=== PATIENT | female | born 1990 | race Caucasian/White ===

== ENCOUNTER 2018-07-20 00:33 | Inpatient (IN) | payer BC ==
[2018-07-20] MEDS ORDERED: RINGERS SOLUTION,LACTATED 1,000 ML IV PRN (01:01)
[2018-07-20 01:17] LABS: APPEARANCE,URINE TURBID; BILIRUBIN,URINE NEGATIVE (NEGATIVE); GLUCOSE, URINE 50 mg/dL (NEGATIVE); KETONES,URINE TRACE mg/dL (NEGATIVE); LEUKOCYTE ESTERASE,URINE NEGATIVE (NEGATIVE); NITRITE,URINE NEGATIVE (NEGATIVE); PROTEIN,URINE 100 mg/dL (NEGATIVE); URINE SPECIFIC GRAVITY 1.006; UROBILINOGEN,URINE NEGATIVE mg/dL (<2.0)
[2018-07-20 01:22] LABS: COLOR,URINE YELLOW
[2018-07-20 01:58] LABS: URINE AMPHETAMINES SCREEN NEGATIVE; URINE BARBITURATES SCREEN NEGATIVE; URINE BENZODIAZEPINES SCREEN NEGATIVE; URINE COCAINE SCREEN NEGATIVE; URINE MARIJUANA (THC) SCREEN NEGATIVE; URINE METHADONE SCREEN NEGATIVE; URINE PHENCYCLIDINE SCREEN NEGATIVE
[2018-07-20 02:23] LABS: ABSOLUTE EOSINOPHILS # (AUTO) 0.1 10^3/uL (0.0-0.6); ABSOLUTE LYMPHOCYTES (AUTO) 1.7 10^3/uL (0.5-4.7); ABSOLUTE MONOCYTES (AUTO) 0.8 10^3/uL (0.1-1.4); ABSOLUTE NEUT (AUTO) 9.2 10^3/uL (1.7-8.2); BASOPHILS % (AUTO) 0.2 % (0-2); EOSINOPHILS % (AUTO) 0.7 % (0-6); HEMATOCRIT 39.7 % (36.0-47.0); HEMOGLOBIN 14.2 g/dL (12.0-15.5); LYMPHOCYTES % (AUTO) 14.3 % (13-45); MEAN CORPUSCULAR HGB CONC 35.7 g/dL (32.0-36.0); MEAN CORPUSCULAR VOLUME 98 fl (80-97); MONOCYTES % (AUTO) 7.2 % (3-13); PLATELET COUNT 331 10^3/uL (150-450); RED BLOOD COUNT 4.05 10^6/uL (3.72-5.28); RED CELL DISTRIBUTION WIDTH 12.7 % (11.5-14.0); SEGMENTED NEUTROPHILS % (AUTO) 77.6 % (42-78); TOTAL CELLS COUNTED % (AUTO) 100 %; WHITE BLOOD COUNT 11.8 10^3/uL (4.0-10.5)
[2018-07-20] MEDS ORDERED: OXYTOCIN/NORMAL SALINE 20 UNIT/1,000 ML RTUINJ ONE ×2 (04:07→22:08)
[2018-07-20] MEDS: OXYTOCIN/NORMAL SALINE 20 UNIT/1,000 ML RTUINJ IV PRN (04:20)
[2018-07-20 04:48] LABS: ALANINE AMINOTRANSFERASE 44 U/L (9-52); ALBUMIN 3.4 g/dL (3.5-5.0); ALKALINE PHOSPHATASE 124 U/L (38-126); ANION GAP 12 (5-19); ASPARTATE AMINO TRANSFERASE 33 U/L (14-36); BILIRUBIN,DIRECT 0.2 mg/dL (0.0-0.4); BILIRUBIN,TOTAL 0.4 mg/dL (0.2-1.3); BLOOD UREA NITROGEN 7 mg/dL (7-20); CALCIUM 9.7 mg/dL (8.4-10.2); CARBON DIOXIDE 20 mmol/L (22-30); CHLORIDE 108 mmol/L (98-107); GLUCOSE 100 mg/dL (75-110); POTASSIUM 4.1 mmol/L (3.6-5.0); SODIUM 139.8 mmol/L (137-145); URIC ACID 4.8 mg/dL (2.5-6.2)
[2018-07-20] MEDS ORDERED: PROMETHAZINE HCL INJ 25 MG/1 ML VIAL ONE (04:57)
[2018-07-20] MEDS ORDERED: NALBUPHINE HCL INJ 10 MG/1 ML AMPULE ONE ×2 (04:58→20:18)
--- NOTE | 2018-07-20 06:45 | Admission Physical ---
Datetime Report Generated by CPN: 07/20/2018 06:44 CURRENT ADMISSION Chief Complaint: Uterine Contractions Indication for Induction: PROM Admit Impression : Term, Intrauterine Admit Plan: Admit to Unit ALLERGIES Medication Allergies: No Medication Allergies: No Known Allergies (07/20/2018) Latex: No Latex Allergies Food Allergies: denies Environmental Allergies: denies OBSTETRICAL HISTORY EDC: 07/18/2018 00:00 : 1 Para: 0 Term: 0 : 0 SAB: 0 IAB: 0 Livin Gestational Diabetes: No Rh Sensitization: No Incompetent Cervix: No NADYA: No Infertility: No ART Treatment: No Uterine Anomaly: No IUGR: No Hx Previous C/S: No Macrosomia: No Hx Loss/Stillborn: No PIH: No Hx : No Placenta Previa/Abruption: No Depression/PP Depression: No PTL/PROM: No Post Hemorrhage: No Current Procedures: Ultrasound; NST Obstetrical History Comments: g1-current SEE RECORDS Alcohol: No Marijuana : No Cocaine: No Other Illicit Drugs: No Cigarettes: Never Smoker. [id number] MEDICAL HISTORY Diabetes: No Blood Transfusion: No Pulmonary Disease (Asthma, TB): Yes Breast Disease: No Hypertension: No Analytical Statistician Surgery: No Heart Disease: No Hosp/Surgery: No Autoimmune Disorder: No Anesthetic Complications: No Kidney Disease: No Abnormal Pap Smear: No Neuro/Epilepsy: No Psychiatric Disorders: No Other Medical Diseases: No Hepatitis/Liver Disease: No Significant Family History: No Varicosities/Phlebitis: No Trauma/Violence : No Thyroid Dysfunction: No Medical History Comments: patient states she has "white coat syndrome", exercise induced asthma has inhaler but has never used, oral cold sores INFECTIOUS HISTORY Gonorrhea: No Genital Herpes: No Chlamydia: No Tuberculosis: No Syphilis: No Hepatitis: No HIV/AIDS Exposure: No Rash or Viral Illness: No HPV: No PHYSICAL EXAM General: Normal HEENT: Normal Neurologic: Normal Thyroid: Normal Heart: Normal Lungs: Normal Breast: Normal Back: Normal Abdomen: Normal Genitourinary Exam: Normal Extremities: Normal DTRs: Normal Pelvic Type: Adequate Vital Signs: Reviewed; Within Normal Limits VAGINAL EXAM Dilatation: 1 Effacement: 25 Station: -2 MEMBRANES Pooling: Positive Membranes: Ruptured Amniotic Fluid Color: Clear FETUS A EGA: 40.2 Monitoring: External US FHR- Baseline: 120 Variability: Moderate 6-25bpm Accelerations: 15X15 Decelerations: None FHR Category: Category I Estimated Weight (gm): 3500 Presentation: Vertex PLANS FOR LABOR AND DELIVERY Labor and Delivery: Plan Pain Management: Natural Other Pain Management Plans: natural but open to other management options if induced Feeding Preference: Breast Benefit of Breast Feed Discussed: Yes Circumcision: Yes INFORMED CONSENT Signature: with User ID: [email or web address]
[2018-07-20] MEDS ORDERED: EPHEDRINE SULFATE INJ 50 MG/1 ML AMPULE ONE (09:49)
[2018-07-20] MEDS ORDERED: FENTANYL/BUPIVACAINE/NS/PF 300 MCG/150 ML RTUINJ EPI ONE ×2 (09:49→22:52)
[2018-07-20] MEDS ORDERED: BUPIVACAINE HCL 0.5 % INJ/PF 30 ML SDV ONE (09:50)
[2018-07-20] MEDS ORDERED: BUPIVACAINE HCL 0.25 % INJ/PF (2.5 MG/1 ML) 30 ML VIAL ONE ×2 (09:50→22:45)
[2018-07-20] MEDS ORDERED: NALBUPHINE HCL INJ 10 MG/1 ML AMPULE INJ ONE (20:28)
[2018-07-20] MEDS ORDERED: MISOPROSTOL 0.2 MG TABLET ONE (22:07)
[2018-07-20] MEDS ORDERED: LIDOCAINE 1% INJ-PF (10 MG/ML) 30 ML SDV ONE (22:08)
[2018-07-21] MEDS: OXYTOCIN/NORMAL SALINE 20 UNIT/1,000 ML RTUINJ IV PRN (04:26)
[2018-07-21] MEDS ORDERED: CITRIC ACID/SODIUM CITRATE ORAL SOLN 15 ML UDCUP ONE (04:59)
[2018-07-21] MEDS ORDERED: CEFAZOLIN 2 GM/D5W RTU 2 GM/50 ML RTUPB IV ONE (04:59)
[2018-07-21] MEDS ORDERED: CARBOPROST TROMETHAMINE INJ 250 MCG/1 ML AMPULE ONE (04:59)
--- NOTE | 2018-07-21 05:14 | L&D Progress Notes ---
PROGRESS NOTES Datetime Report Generated by CPN: 07/21/2018 05:14 PROGRESS NOTE Impression: Arrest of Dilatation/Descent; Reassuring Heart Rate Impression Other: Maternal exhaustion Plan: Deliver- Section Informed Consent Obtained: Section Delivery Vital Signs : Reviewed Comment: Prolonged 1st stage of labor followed by minimal descent during the 2nd stage as a result of exhaustion. Pt with pushing efforts >1hr but no full effort on patient's part. Pt very uncomfortable and pushing in various positions. Second to maternal exhaustion and lack of pushing effort, recommend a 1LTCS. Discussed with pt and her risk of to be bleeding, infection, poor wound healing, possible damage to adjacent structures such as damage to the bowel, bladder, ureters, nerves or blood vessels. Knowing all of the above, patient desires to go forward with . VAGINAL EXAM Dilatation: 10 Dilatation: 1 Effacement: 100 Effacement: 25 Station: 2 Station: -2 Contractions: 3 LAST VAGINAL EXAM-NURSING Dilitation: 10.0 Dilitation: 9.5 Dilitation: 9.5 Dilitation: 9.5 Dilitation: 8.0 Dilitation: 7.0 Dilitation: 6.0 Dilitation: 5.0 Dilitation: 3.5 Dilitation: 2.0 Dilitation: 2.0 Dilitation: 1.0 Effacement: 100 Effacement: 100 Effacement: 100 Effacement: 100 Effacement: 100 Effacement: 100 Effacement: 100 Effacement: 100 Effacement: 100 Effacement: 90 Effacement: 80 Effacement: long Station: 2 Station: 2 Station: 2 Station: 2 Station: 1 Station: 1 Station: 1 Station: 0 Station: 0 Station: 0 Station: -1 Station: -2 Contractions: UTD ctx pattern. toco adjusted Contractions: off monitor for most of tracing Contractions: utd, monitor adjusted MEMBRANES Pooling: Positive Membranes: Ruptured Membranes: Ruptured Amniotic Fluid Color: Clear Amniotic Fluid Color: Clear FETUS A FHR - Baseline: 120 Monitoring: External US Variability: Moderate 6-25bpm Accelerations: 15X15 Decelerations: Variable FHR Category: Category I : 40w3d : 40.2 Estimated Weight (gm): 3400 Estimated Weight (gm): 3500 Presentation: Vertex SIGNATURE SIGNATURE: [id number] SIGNATURE: [id number] Signature: with User ID: [email or web address]
[2018-07-21] MEDS ORDERED: BUPIVACAINE HCL 0.5 % INJ/PF 30 ML SDV ONE (05:31)
[2018-07-21] MEDS ORDERED: MIDAZOLAM 2 MG/2 ML INJ ONE (05:41)
[2018-07-21] MEDS ORDERED: KETAMINE HCL INJ 500 MG/10 ML VIAL ONE (05:41)
[2018-07-21] MEDS ORDERED: EPHEDRINE SULFATE INJ 50 MG/1 ML AMPULE ONE (05:41)
[2018-07-21] MEDS ORDERED: OXYTOCIN 10 UNIT/ML VIAL ONE (05:42)
[2018-07-21] MEDS ORDERED: FENTANYL CITRATE INJ/PF 100 MCG/2 ML AMPUL ONE (05:42)
[2018-07-21] MEDS ORDERED: MEPERIDINE HCL/PF INJ 25 MG/1 ML DISP.SYRIN IV PRN (06:11)
[2018-07-21] MEDS ORDERED: PROMETHAZINE HCL INJ 25 MG/1 ML VIAL IV PRN ×3 (06:11→07:30)
[2018-07-21] MEDS ORDERED: DIPHENHYDRAMINE HCL 50 MG/ML VIAL IV PRN (06:11)
[2018-07-21] MEDS ORDERED: FENTANYL CITRATE INJ/PF 100 MCG/2 ML AMPUL IV PRN ×3 (06:11)
[2018-07-21] MEDS ORDERED: MORPHINE SULFATE 10 MG/ML INJ IV PRN (06:11)
[2018-07-21] MEDS ORDERED: ONDANSETRON HCL INJ/PF 4 MG/2 ML SDV IV PRN (06:11)
[2018-07-21] MEDS ORDERED: ACETAMINOPHEN 1,000 MG/100 ML RTUPB IV ONE (07:05)
[2018-07-21] MEDS ORDERED: HYDROMORPHONE HCL INJ/PF 2 MG/ML AMPULE IV PRN (07:30)
[2018-07-21] MEDS ORDERED: OXYTOCIN/NORMAL SALINE 20 UNIT/1,000 ML RTUINJ IV PRN (07:30)
[2018-07-21] MEDS ORDERED: OXYCODONE-ACETAMINOPHEN 5-325 MG TABLET PO PRN (07:30)
[2018-07-21] MEDS ORDERED: DIPH/PERTUSS(ACELL)/TETANUS VAC/PF 0.5 ML SYR (>=10YO) IM PRN (07:30)
[2018-07-21] MEDS ORDERED: MEASLES,MUMPS&RUBELLA VACC/PF 0.5 ML VIAL SUBCUT PRN (07:30)
[2018-07-21] MEDS ORDERED: ACETAMINOPHEN 325 MG TABLET PO PRN (07:30)
[2018-07-21] MEDS ORDERED: MORPHINE SULFATE 10 MG/ML INJ IM PRN (07:30)
[2018-07-21] MEDS ORDERED: RINGERS SOLUTION,LACTATED 1,000 ML IV PRN (07:30)
[2018-07-21] MEDS ORDERED: KETOROLAC TROMETHAMINE INJ/PF 30 MG/1 ML SDV IV ONE (07:45)
--- NOTE | 2018-07-21 08:07 | Operative Report ---
Operative Report DATE OF SURGERY: 07/21/18 PREOPERATIVE DIAGNOSIS: IUP @ 40w3d. GBS neg. Prolonged Rupture of membranes. Failure to descend second to lack of effort. Maternal exhaustion POSTOPERATIVE DIAGNOSIS: Same OPERATION: Primary low transverse section SURGEON: YASEMIN ECKERT 1ST BERRY PLANTER: BRENTON HENRIQUEZ 2ND Carbon Paper Coating Supervisor: KAM BIANCHI ANESTHESIA: Epidural COMPLICATIONS: None ESTIMATED BLOOD LOSS: 750ml INTRAOPERATIVE FINDINGS: VMI in vtx presentation with APGARS of 9&9 and weight of 2670g. Normal placenta. Normal, ovary, tubes and uterus. PROCEDURE: Prior to procedure it was discussed with patient the risk of procedure to be bleeding, infection, wound healing, possible damage to adjacent structures such as bowel, bladder, ureters, nerves, vessels etc. Risk of thromboembolic disease, blood transfusion and hysterectomy. Patient was taken to the operating room with livingston in, GARCÍA hose on and SCDs on. Patient was transferred to the OR table. Lower extremity compression devices were placed and active. Livingston was still present from labor. Patients was placed in a leftward tilt. Patient's was prepped and draped in the normal sterile fashion. A timeout was performed. The patient was tested for adequate anesthesia. A scalpel was used to perform a pfannienstiel incision approximately 2cm above the pubic bone. After skin incision, the bovie was used to disect down to the fascia. The fascia was incised with the bovie. The superior portion of the fascia was grasped with dinah clamps. The rectus muscle was dissected off the fascia. Attention was turned to the inferior portion of the fascia which in the same fashion the dinah clamps were used to elevate the fascia and the rectus muscle was dissected off. The rectus muscles were in the midline. The peritoneum was entered. The bladder blade was inserted. The vesicouterine peritoneum was elevated and entered sharply with the metzenbaum scissors. The bladder flap was created digitally. A fresh scalpel bladder was used to incise the lower uterine segment in a transverse fashion. After hysterotomy, the incision was widened in a superior/inferior fashion. The operators hand was placed in the lower segment and the head elevated, a Kiwi was placed and the was delivered. The head was brought through the hysterotomy incision along with the body. There was a spontaneous cry. The cord was clamped and cut and infant was passed off. Cord blood was collected. The placenta was manually removed. The uterus was cleared of all clots and debris. The uterus was removed from the abdomen. The uterine incision was closed with 0 vicryl suture in running locking fashion. A second layer of the same suture was used for the imbricating layer. A non-hemostatic area of the incision was brought to hemostasis with a figure of eight suture. The uterus was replaced in the abdomen. The peritoneum and muscles were reapproximated with 0 vicryl suture in a running mattress suture. The fascia was closed with 0 vicryl suture. The adipose was reapproximated with interrupted 3-0 plain gut suture. The skin was closed with 4-0 monocryl on a delmer needle. Mastisol and sterri strips were placed along with a pressure dressing. The patients uterus was expressed of blood and clots. The patient was cleansed and moved from the OR bed. The patient was taken to the PACU in awake and stable condition.
[2018-07-21] MEDS: PRENATAL VITAMIN W DHA CAPSULE PO SCH (09:51)
[2018-07-21] MEDS: DOCUSATE SODIUM 100 MG CAPSULE PO SCH ×2 (09:51→17:25)
[2018-07-21] MEDS ORDERED: MISOPROSTOL 0.2 MG TABLET ONE (10:03)
[2018-07-21] MEDS ORDERED: KETOROLAC TROMETHAMINE 60 MG/2 ML SDV ONE (10:46)
[2018-07-21] MEDS ORDERED: ONDANSETRON HCL INJ/PF 4 MG/2 ML SDV ONE (10:46)
[2018-07-21] MEDS ORDERED: DEXAMETHASONE SOD PHOSPHATE INJ 4 MG/1 ML VIAL ONE (10:46)
[2018-07-21] MEDS ORDERED: METOCLOPRAMIDE HCL INJ/PF 10 MG/2 ML SDV ONE (10:46)
--- NOTE | 2018-07-21 10:53 | Delivery Summary ---
Del Sum A-C Datetime Report Generated by CPN: 07/21/2018 10:52 DELIVERY PERSONNEL DELIVERY PERSONNEL: [id number] Delivery Doctor:: Zoraida Kim MD Anesthesiologist:: Hank De Leon MD POLITICAL REPORTER:: Bharati Isaacs CRNA Labor and Delivery Nurse:: Pia Heller RN Atg Java Developer:: Pia Heller RN Wait Staff/BUTCHER: ST Manasa Wait Staff/BUTCHER: Leslie Faith, ST MATERNAL INFORMATION Delivery Anesthesia: Epidural Medications After Delivery: Pitocin Drip 20 Units/1000ml NSS Estimated Blood Loss (ml): 750 Maternal Complications: None; Prolonged Labor > 20 Hrs Provider Comments: section was uncomplicated. LABOR SUMMARY EDC: 07/18/2018 00:00 No. Babies in Womb: 1 Attempted: No Labor Anesthesia: Epidural LABOR INFORMATION Reason for Induction: Not Applicable Onset of Labor: 07/20/2018 15:20 Complete Dilatation: 07/21/2018 02:58 Oxytocin: Augmentation Group B Beta Strep: negative Antibiotics # of Doses: 0 Antibiotics Time of Last Dose: n/a Steroids Given: None Reason Steroids Not Administered: Not Applicable MEMBRANES Membranes Rupture Method: Spontaneous Rupture of Membranes: 07/19/2018 23:45 Length of Rupture (hr): 30.37 Amniotic Fluid Color: Clear Amniotic Fluid Amount: Moderate Amniotic Fluid Odor: Normal STAGES OF LABOR Stage 1 hr: 11 Stage 1 min: 38 Stage 2 hr: 3 Stage 2 min: 9 Stage 3 hr: 0 Stage 3 min: 1 Total Time in Labor hr: 14 Total Time in Labor min: 48 VAGINAL DELIVERY Episiotomy: None Laceration Extension #1: N/A Laceration Repair: Not Applicable Sponge Count Correct: N/A Sharps Count Correct: N/A CSECTION DELIVERY Primary Indication: Failure of Descent Secondary Indication: Other Other Secondary Indication: Lack of maternal effort CSection Urgency: Non-Scheduled CSection Incidence: Primary Labor: Labor Elective: Nonelective CSection Incision: Lower Uterine Transverse BABY A INFORMATION Delivery Date/Time: 07/21/2018 06:07 Method of Delivery: Born in Route : No : N/A Forceps: N/A Vacuum Extraction: Successful Shoulder Dystocia : No ASSISTED DELIVERY BABY A Catheter Prior to Procedure: Yes Vacuum Number of Pulls: 1 Vacuum Number of PopOffs: 1 Vacuum/Forceps Comment: kiwi applied at 0606 during C section with one pop off and one pull. PRESENTATION/POSITION BABY A Presentation: Cephalic Cephalic Presentation: Vertex Breech Presentation: N/A PLACENTA INFORMATION BABY A Placenta Delivery Time : 07/21/2018 06:08 Placenta Method of Delivery: Spontaneous Placenta Status: Delivered SCORES BABY A Heart Rate 1 min: >100 bpm Resp Effort 1 min: Good Cry Reflex Irritability 1 min: Cough or Sneeze or Pulls Away Muscle Tone 1 min: Active Motion Color 1 min: Body [place], Extremities Blue Resuscitation Effort 1 min: Tactile Stimulation SCORE 1 MIN: 9 Heart Rate 5 min: >100 bpm Resp Effort 5 min: Good Cry Reflex Irritability 5 min: Cough or Sneeze or Pulls Away Muscle Tone 5 min: Active Motion Color 5 min: Body [place], Extremities Blue SCORE 5 MIN: 9 INFORMATION BABY A Gestational Age at Delivery: 40.3 Gestational Status: Full Term- 39- 40.6 Weeks Infant Outcome : Liveborn Infant Condition : Stable Sex: Male IDENTIFICATION BABY A Verification Date/Time: 07/21/2018 06:27 ID Band Number: [id number] Mother's Name Verified: Yes Infant RN Verifying Infant: CAnn Heller, RN Mini Denise, RN WEIGHT/LENGTH BABY A Infant Birthweight (gm): 2670 Infant Weight (lb): 5 Infant Weight (oz): 14 Length (in): 19.50 Length (cm): 49.53 CORD INFORMATION BABY A No. Cord Vessels: 3 Nuchal Cord : N/A Cord Blood Taken: Yes-For Storage (Mom's Blood type +) Suction: Mouth ASSESSMENT BABY A Infant Complications: None Physical Findings at Delivery: Caput Succedaneum Transferred To: Remains with Mother BABY B INFORMATION : N/A SIGNATURES Signature: with User ID: [email or web address]
[2018-07-21] MEDS ORDERED: CEFAZOLIN 1 GM/D5W RTU 1 GM/50 ML RTUPB IV SCH (12:00)
[2018-07-21] MEDS: KETOROLAC TROMETHAMINE INJ/PF 30 MG/1 ML SDV IV SCH ×2 (14:19→21:26)
[2018-07-21] MEDS: OXYCODONE-ACETAMINOPHEN 5-325 MG TABLET PO PRN (19:50)
[2018-07-21] MEDS: SIMETHICONE 80 MG TAB.CHEW PO PRN (20:09)
[2018-07-22] MEDS: KETOROLAC TROMETHAMINE INJ/PF 30 MG/1 ML SDV IV SCH (05:05)
[2018-07-22 08:40] LABS: HEMATOCRIT 24.4 % (36.0-47.0); MEAN CORPUSCULAR HEMOGLOBIN 34.8 pg (27.0-33.4); MEAN CORPUSCULAR HGB CONC 34.9 g/dL (32.0-36.0); MEAN CORPUSCULAR VOLUME 100 fl (80-97); PLATELET COUNT 277 10^3/uL (150-450); RED BLOOD COUNT 2.45 10^6/uL (3.72-5.28); RED CELL DISTRIBUTION WIDTH 12.9 % (11.5-14.0); WHITE BLOOD COUNT 18.5 10^3/uL (4.0-10.5)
[2018-07-22 08:50] LABS: HEMOGLOBIN 8.5 g/dL (12.0-15.5)
[2018-07-22] MEDS: OXYCODONE-ACETAMINOPHEN 5-325 MG TABLET PO PRN ×3 (08:51→21:58)
[2018-07-22] MEDS: DOCUSATE SODIUM 100 MG CAPSULE PO SCH ×2 (10:19→17:17)
[2018-07-22] MEDS: PRENATAL VITAMIN W DHA CAPSULE PO SCH (10:19)
--- NOTE | 2018-07-22 10:49 | PDOC PROGRESS REPORT ---
Subjective-OB Progress Note for:: 07/22/18 Subjective: Doing well, feels tired today but pain under control, eating well, passing gas Physical Exam (OB) Vital Signs: Temp Pulse Resp BP Pulse Ox 99.3 F 87 20 126/75 H 98 07/22/18 08:00 07/22/18 08:00 07/22/18 08:00 07/22/18 08:00 07/22/18 08:00 Intake & Output 07/21/18 07/22/18 07/23/18 06:59 06:59 06:59 Intake Total 145 2600 Output Total 1700 Balance 145 900 - PIH/Pre-Eclampsia Clonus: Negative Headache: Absent Epigastric Pain: No Visual Changes: No - Dressing Removed: No Incision: Well Approximated Closure Type: Steri-Strips - Lochia Lochia Amount: Small 10-25 ml Lochia Color: Rubra/Red - Abdomen Description: Tender, Soft Hernia Present: No Fundal Description: Firm, Midline Fundal Height: u/u - u/2 Objective-Diagnostic Laboratory: 07/22/18 07:36 07/20/18 04:18 07/22/18 07:36 WBC 18.5 H RBC 2.45 L Hgb 8.5 L D Hct 24.4 L MCV 100 H MCH 34.8 H MCHC 34.9 RDW 12.9 Plt Count 277 Assessment and Plan(PN) - Assessment and Plan (1) hemorrhage Qualifiers: hemorrhage type: unspecified Qualified Code(s): O72.1 - Other immediate hemorrhage Is this a current diagnosis for this admission?: Yes (2) Delivery by emergency caesarean section Is this a current diagnosis for this admission?: Yes - Time Spent with Patient Time with patient: Less than 15 minutes Medications reviewed and adjusted accordingly: Yes - Disposition Anticipated Discharge: Home Within: within 48 hours
[2018-07-22] MEDS: SIMETHICONE 80 MG TAB.CHEW PO PRN (21:57)
[2018-07-23] MEDS: IBUPROFEN 800 MG TABLET PO SCH ×5 (00:05→23:05)
[2018-07-23] MEDS: PRENATAL VITAMIN W DHA CAPSULE PO SCH (09:05)
[2018-07-23] MEDS: DOCUSATE SODIUM 100 MG CAPSULE PO SCH ×2 (09:05→17:56)
[2018-07-23 11:20] LABS: HEMATOCRIT 24.2 % (36.0-47.0); HEMOGLOBIN 8.5 g/dL (12.0-15.5); MEAN CORPUSCULAR VOLUME 100 fl (80-97); PLATELET COUNT 306 10^3/uL (150-450); RED BLOOD COUNT 2.41 10^6/uL (3.72-5.28); WHITE BLOOD COUNT 14.8 10^3/uL (4.0-10.5)
--- NOTE | 2018-07-23 12:12 | PDOC PROGRESS REPORT ---
Subjective-OB Progress Note for:: 07/23/18 Subjective: 28yo s/p primary ppd2. Pt. reports pain is better controlled with pain meds today, was trying not to take the percocets but her pain was pretty intense yesterday. Reports ambulating and voiding without difficulty. and pumping with some difficulty. Baby under bili lights. Desires to stay in patient one more day if possible. Denies SOB/dizziness/ lightheadedness or other concerns. Physical Exam (OB) Vital Signs: Temp Pulse Resp BP Pulse Ox 98.5 F 87 16 130/76 H 100 07/23/18 08:59 07/23/18 08:59 07/23/18 08:59 07/23/18 08:59 07/23/18 08:59 Intake & Output 07/22/18 07/23/18 07/24/18 06:59 06:59 06:59 Intake Total 2600 1000 Output Total 1700 400 Balance 900 600 - General General Appearance: Appears well, Anxious - PIH/Pre-Eclampsia DTR's: 1 + Clonus: Negative Headache: Absent Epigastric Pain: No Visual Changes: No - Dressing Removed: No - s/sx of infection noted Incision: Well Approximated Closure Type: Steri-Strips - Lochia Lochia Amount: Small 10-25 ml Lochia Color: Rubra/Red - Abdomen Description: Tender, Soft Hernia Present: No Fundal Description: Firm, Midline Fundal Height: u/u - u/2 - Respiratory Respiratory Status: No respiratory distress - Extremities Upper extremity: Normal inspection Lower extremities: Normal inspection - Neurological Cognition: Normal Orientation: AAOx4 - Psychological Associated symptoms: Normal affect, Normal mood Objective-Diagnostic Laboratory: 07/23/18 11:11 07/20/18 04:18 07/23/18 11:11 WBC 14.8 H RBC 2.41 L Hgb 8.5 L Hct 24.2 L MCV 100 H MCH 35.0 H MCHC 35.0 RDW 13.0 Plt Count 306 Assessment and Plan(PN) - Assessment and Plan (1) PROM (premature rupture of membranes) Qualifiers: PROM onset of labor timing: unspecified duration between rupture of membranes and onset of labor PROM gestational age: full term Qualified Code( s): O42.92 - Full-term premature rupture of membranes, unspecified as to length of time between rupture and onset of labor Is this a current diagnosis for this admission?: Yes Plan: delivered (2) hemorrhage Qualifiers: hemorrhage type: unspecified Qualified Code(s): O72.1 - Other immediate hemorrhage Is this a current diagnosis for this admission?: Yes Plan: continue to monitor for s/s of decompensation. CBC stable today (3) Delivery by emergency caesarean section Is this a current diagnosis for this admission?: Yes Plan: routine pp care, monitor for s/s of infection - Time Spent with Patient Time with patient: 15-25 minutes Medications reviewed and adjusted accordingly: Yes - Disposition Anticipated Discharge: Home Within: within 24 hours
[2018-07-23] MEDS: OXYCODONE-ACETAMINOPHEN 5-325 MG TABLET PO PRN ×2 (13:34→19:33)
[2018-07-24] MEDS: OXYCODONE-ACETAMINOPHEN 5-325 MG TABLET PO PRN ×2 (00:52→10:47)
[2018-07-24] MEDS: IBUPROFEN 800 MG TABLET PO SCH ×2 (05:19→11:52)
[2018-07-24] MEDS: DOCUSATE SODIUM 100 MG CAPSULE PO SCH (09:10)
[2018-07-24] MEDS: PRENATAL VITAMIN W DHA CAPSULE PO SCH (09:10)
--- NOTE | 2018-07-24 10:19 | PDOC DISCHARGE SUMMARY ---
Final Diagnosis Discharge Date: 07/24/18 - POD #3, s/p Primary for CPD and subsequent PPH. Pt doing well today, no complaints. A+ Rubella Immune - Final Diagnosis (1) Anemia, Is this a current diagnosis for this admission?: Yes (2) Delivery by emergency caesarean section Is this a current diagnosis for this admission?: Yes (3) PROM (premature rupture of membranes) Is this a current diagnosis for this admission?: Yes Discharge Data - Discharge Medication Prescriptions: Docusate Sodium [Colace 100 mg Capsule] 100 mg PO BID #60 capsule Ferrous Sulfate [Feosol 325 mg Tablet] 325 mg PO TID #90 tab Ibuprofen [Motrin 800 mg Tablet] 800 mg PO Q8HP PRN #60 tablet PRN Reason: Abdominal Cramping Oxycodone HCl/Acetaminophen [Percocet 5-325 mg Tablet] 2 tab PO Q4HP PRN #20 tablet PRN Reason: For Pain Scale 3-5 Home Medications: Cholecalciferol (Vitamin D3) [Vitamin D3 5000 unit Capsule] 1 tab PO DAILY 07/20 Krill Oil 1 tab PO DAILY 07/20/18 Pnv No.95/Ferrous Fum/Folic AC [ Vitamin Tablet] 1 tab PO DAILY Docusate Sodium [Colace 100 mg Capsule] 100 mg PO BID #60 capsule 07/23/18 Ferrous Sulfate [Feosol 325 mg Tablet] 325 mg PO TID #90 tab 07/23/18 Ibuprofen [Motrin 800 mg Tablet] 800 mg PO Q8HP PRN #60 tablet 07/23/18 Oxycodone HCl/Acetaminophen [Percocet 5-325 mg Tablet] 2 tab PO Q4HP PRN #20 tablet 07/23/18 Reason(s) for Admission: Induction of Labor Procedures: Ultrasound Intrapartum Procedure(s): : Low Cervical, Transverse Complication(s): Hemorrhage-Uterine Atony - Diagnosis Test Laboratory: Temp Pulse Resp BP Pulse Ox 98.4 F 86 20 133/75 H 98 07/24/18 08:35 07/24/18 08:35 07/24/18 08:35 07/24/18 08:35 07/24/18 08:35 07/20/18 07/20/18 07/22/18 00:52 01:55 07:36 RBC 4.05 2.45 L Hgb 14.2 8.5 L D Hct 39.7 24.4 L Urine Opiates Screen NEGATIVE 07/23/18 11:11 RBC 2.41 L Hgb 8.5 L Hct 24.2 L Urine Opiates Screen - Discharge information/Instructions Discharge Activity: Activity As Tolerated, Balance Activity w/Rest, No Driving, No Lifting Over 10 Pounds, No Lifting/Push/Pulling, Pelvic Rest, No tub bath, Walk Frequently Discharge Diet: As Tolerated, Regular Disposition: HOME, SELF-CARE Follow up with: [facility] in: 1, Weeks
[2018-07-24 12:18] VITALS: BP 148/80
== END 2018-07-24 14:35 | disposition home or self-care (01) | DRG 787 ==
LOC: LC 00:33 → LR 01:05 → 2S 07-21 09:10
PROVIDERS: ADMIT Obstetrics & Gynecology; ATTEND Obstetrics & Gynecology
PROC: 4A1HXCZ Monitoring of Products of Conception, Cardiac Rate, External Approach (ICD-10-PCS; 2018-07-20)
PROC: 10D00Z1 Extraction of Products of Conception, Low, Open Approach (ICD-10-PCS; principal; 2018-07-21)
PROC: 3E0234Z Introduction of Serum, Toxoid and Vaccine into Muscle, Percutaneous Approach (ICD-10-PCS; 2018-07-24)
DX: O63.0 Prolonged first stage (of labor) (principal); O72.1 Other immediate postpartum hemorrhage; O75.81 Maternal exhaustion complicating labor and delivery; O42.02 Full-term premature rupture of membranes, onset of labor within 24 hours of rupture; O90.81 Anemia of the puerperium; D64.9 Anemia, unspecified; Z23 Encounter for immunization; Z28.21 Immunization not carried out because of patient refusal; Z3A.40 40 weeks gestation of pregnancy; Z37.0 Single live birth
CPT/HCPCS: 1961; 36415; 80053; 80307; 81005; 83615; 84112; 84550; 85025; 85027; 86592; 86850; 86900; 86901; 90715; 94760; 94799; J0131; J0690; J1100; J1170; J1885; J2250; J2300; J2405; J2550; J2590; J2765; J3010; J3490; J7120

== ENCOUNTER 2018-07-25 10:21 | Emergency (ER) | payer BC ==
--- NOTE | 2018-07-25 10:35 | ER Document Report ---
ED Medical Screen (RME) - General Mode of Arrival: Ambulatory Information source: Patient TRAVEL OUTSIDE OF THE [place] IN LAST 30 DAYS: No - General Chief Complaint: Blood Pressure Problem Stated Complaint: BLOOD PRESSURE ISSUE Time Seen by Provider: 07/25/18 10:33 Notes: 28 years old female , discharged from the hospital after on the second of this month. Presents today with an episode of dizziness lightheadedness and elevated blood pressure. She had white coat syndrome. Each time she goes to the doctors for a long time always have elevated blood pressure. But at home monitoring pressure remains around 110-120. Systole. Today at the baby's doctor's appointment, baby's blood was drawn, the mother was watching it and almost passed out. Had a vasovagal episode. Following that her blood pressure was elevated around 170 systole therefore she was referred to the ED. She also states that she had lost a lot of blood during his . And transfused with blood. Currently feeling comfortable. (MONROE NAJERA) - Related Data Allergies/Adverse Reactions: No Known Allergies Allergy (Verified 07/25/18 10:23) - Vital signs Vitals: Temp Pulse Resp BP Pulse Ox 98.8 F 94 18 170/86 H 100 07/25/18 10:23 07/25/18 10:23 07/25/18 10:23 07/25/18 10:23 07/25/18 10:23 - Vital Signs Vital signs: Temp Pulse Resp BP Pulse Ox 98.8 F 94 18 170/86 H 100 07/25/18 10:23 07/25/18 10:23 07/25/18 10:23 07/25/18 10:23 07/25/18 10:23 - Laboratory Laboratory results interpreted by me: 07/25/18 10:43 Urine Blood LARGE H Doctor's Discharge - Discharge Referrals: ROBYN ESPARZA MD [Primary Care Provider] - Follow up as needed
[2018-07-25 10:56] LABS: APPEARANCE,URINE CLEAR; BILIRUBIN,URINE NEGATIVE (NEGATIVE); COLOR,URINE COLORLESS; GLUCOSE, URINE NEGATIVE (NEGATIVE); KETONES,URINE NEGATIVE (NEGATIVE); LEUKOCYTE ESTERASE,URINE NEGATIVE (NEGATIVE); NITRITE,URINE NEGATIVE (NEGATIVE); PROTEIN,URINE NEGATIVE (NEGATIVE); URINE SPECIFIC GRAVITY 1.003; UROBILINOGEN,URINE NEGATIVE mg/dL (<2.0)
--- NOTE | 2018-07-25 11:24 | ER Document Report ---
ED General - General Chief Complaint: Blood Pressure Problem Stated Complaint: BLOOD PRESSURE ISSUE Time Seen by Provider: 07/25/18 10:33 Mode of Arrival: Ambulatory TRAVEL OUTSIDE OF THE [place] IN LAST 30 DAYS: No - HPI Notes: 28-year-old female 1 para 1 presents to the ED for complaints of feeling dizzy when she was getting her son's blood work checked today, states the blood pressure is elevated today, she was sent to the ED for evaluation. Patient has discharge from [facility] or yesterday after having a . Patient states she has not been sleeping since giving since she is breast-feeding every hour, changing diapers and reports that there is "multiple people in the room every 30 minutes" while she was on the OBGYN floor. Patient denies having gestational diabetes or preeclampsia during her other complications in her . States incision site is healing well. Patient states that she does get white coat syndrome. Denies any history of hypertension or syncopal event. She did receive a blood transfusion when she did have her , states she is laboring for 30 hours and then needed an emergent due to failure progression. Was delivered, did not require NICU. States she is having some vaginal bleeding but nothing than usual. Is not complaining any vaginal pelvic pain. Denies any diarrhea, nausea or vomiting. Denies fevers, chills, chest pain,palpitations, shortness of breath , dyspnea, nausea, vomiting, diarrhea, abdominal pain, hematuria,blurred vision , double vision, loss of vision, speech changes, LH, dizziness, syncope, headaches, wheezing, ST, URI, neck pain, weakness, bowel or bladder dysfunction , saddle anesthesia, numbness or tingling in bilateral upper or lower extremities equally, muscle paralysis, weakness in bilateral upper or lower extremities equally or rash. - Related Data Allergies/Adverse Reactions: No Known Allergies Allergy (Verified 07/25/18 10:23) Past Medical History - General Information source: Patient - Social History Smoking Status: Never Smoker Chew tobacco use (# tins/day): No Frequency of alcohol use: None Drug Abuse: None Family History: Reviewed & Not Pertinent Patient has suicidal ideation: No Patient has homicidal ideation: No Renal/ Medical History: Denies: Hx Peritoneal Dialysis Past Surgical History: Reports: Hx Section Review of Systems - Review of Systems Constitutional: See HPI EENT: No symptoms reported Cardiovascular: No symptoms reported Respiratory: No symptoms reported Gastrointestinal: No symptoms reported Genitourinary: No symptoms reported Female Genitourinary: No symptoms reported Musculoskeletal: No symptoms reported Skin: No symptoms reported Hematologic/Lymphatic: No symptoms reported Neurological/Psychological: No symptoms reported Physical Exam - Vital signs Vitals: Temp Pulse Resp BP Pulse Ox 98.8 F 94 18 170/86 H 100 07/25/18 10:23 07/25/18 10:23 07/25/18 10:23 07/25/18 10:23 07/25/18 10:23 - Notes Notes: PHYSICAL EXAMINATION: GENERAL: Well-appearing, well-nourished and in no acute distress. HEAD: Atraumatic, normocephalic. EYES: Pupils equal round and reactive to light, extraocular movements intact, conjunctiva are normal. ENT: Nares patent, oropharynx clear without exudates. Moist mucous membranes. NECK: Normal range of motion, supple without lymphadenopathy LUNGS: Breath sounds clear to auscultation bilaterally and equal. No wheezes rales or rhonchi. HEART: Regular rate and rhythm without murmurs ABDOMEN: Soft, nontender, nondistended abdomen. No guarding, no rebound. No masses appreciated. Female : deferred Musculoskeletal: Normal range of motion, no pitting or edema. No cyanosis. NEUROLOGICAL: Cranial nerves grossly intact. Normal speech, normal gait. Normal sensory, motor exams. PERRLA, EOMI. Full motor and sensory function throughout. [employer] + 2 equal bilaterally in BUE. Tongue midline. No pronator drift. No ataxia. Neck with APROM. Raises eyebrows. Strength is 5 out of 5 in bilateral upper and lower extremities equally.Speaks in full sentences. No weakness on one side. PSYCH: Normal mood, normal affect. SKIN: Warm, Dry, normal turgor, no rashes or lesions noted. Site healing well, no erythema, induration, swelling or warmth to touch Course - Re-evaluation Re-evalutation: 07/25/18 12:51 Afebrile, no distress, vitals was blood pressure slightly elevated presents for evaluation since her blood pressure is elevation oily she was getting her child blood work done today. Patient was recently discharged from the [facility] yesterday after having on July 21, 2018, patient states that she did have a transfusion due to blood loss while she was having her on the second. Patient denies any change in level consciousness or neuro changes on her blood pressure was elevated. Patient has not been sleeping since of her child due to breast-feeding and changing. is supportive. H&H today was elevated 9.2 and hematocrit 26, previous H&H on 23 July showed a hematocrit of 24.2 and hemoglobin of 8.5. Orthostatics were normal. Patient given 500 mL's of normal saline IV. CMP shows no renal or hepatic deficiency, no electrolyte disturbances. normal magnesium and phosphorus. EKG is negative for non-STEMI. Consulted with Dr. Roy,ER attending any patient's case at 1245 guarding pertinent laboratory diagnostic minimal hernias, does not feel that transfusion is necessary due to trending H&H. Patient did feel better after normal saline. Follow-up with [facility] tomorrow, reassurance given and advised to rest to major surgery difficult labor and delivery. is very hands- on and supportive. I have reevaluated this patient multiple times and no significant life threatening changes, no signs of toxicity, sepsis or peritonitis are noted. The patient and I have discussed the diagnosis and risks , and we agree with discharging home and close follow-up. We also discussed returning to the Emergency Department immediately if new or worsening symptoms occur with the understanding that symptoms and presentations can change. At this time will discharge with return precautions and follow-up recommendations. Verbal discharge instructions given a the bedside and opportunity for questions given. We have discussed the symptoms which are most concerning (e.g., , chest pain, shortness of breath, pain level consciousness, confusion, abdominal pain, blurred vision, double vision, loss of vision, numbness or tingling, extremities, etc.) that necessitate immediate return. Medication warnings reviewed. All questions and concerns answered by this provider. Patient is in agreement with this plan and has verbalized understanding of return precautions and the need for primary care follow-up in the next 24-72 hours. Patient verbalized understanding of plan of care and agree with plan of care. - Vital Signs Vital signs: Temp Pulse Resp BP Pulse Ox 98.2 F 90 20 129/82 H 98 07/25/18 14:00 07/25/18 12:49 07/25/18 14:00 07/25/18 13:48 07/25/18 14:00 - Laboratory Result Diagrams: 07/25/18 11:17 07/25/18 11:17 Laboratory results interpreted by me: 07/25/18 07/25/18 07/25/18 10:43 11:17 11:17 WBC 11.5 H RBC 2.59 L Hgb 9.2 L Hct 26.0 L MCV 100 H MCH 35.6 H Seg Neuts % (Manual) 79 H Abs Neuts (Manual) 9.1 H Carbon Dioxide 21 L BUN 6 L Creatinine 0.45 L Glucose 127 H Total Protein 5.7 L Albumin 3.1 L Urine Blood LARGE H Discharge - Discharge Clinical Impression: Anemia, , Orthostatic lightheadedness Condition: Stable Disposition: HOME, SELF-CARE Instructions: Anemia ([facility]), Dizziness ([facility]), High Blood Pressure ([facility]) Additional Instructions: Return immediately for any new or worsening symptoms. Follow up with primary care provider, call tomorrow to make followup appointment. Follow-up with your [facility] tomorrow morning. Return to the ED for experience any fever, dizziness, lightheadedness, nausea vomiting, numbness or tingling to bilateral upper or lower extremities, rashes, confusion, immediately come to the ER or call 911 Referrals: ROBYN ESPARZA MD [ACTIVE STAFF] - Follow up tomorrow
[2018-07-25 11:35] LABS: HEMOGLOBIN 9.2 g/dL (12.0-15.5); MEAN CORPUSCULAR HEMOGLOBIN 35.6 pg (27.0-33.4); MEAN CORPUSCULAR HGB CONC 35.6 g/dL (32.0-36.0); MEAN CORPUSCULAR VOLUME 100 fl (80-97); PLATELET COUNT 435 10^3/uL (150-450); RED BLOOD COUNT 2.59 10^6/uL (3.72-5.28); RED CELL DISTRIBUTION WIDTH 12.9 % (11.5-14.0); WHITE BLOOD COUNT 11.5 10^3/uL (4.0-10.5)
[2018-07-25 11:57] LABS: ALANINE AMINOTRANSFERASE 31 U/L (9-52); ALBUMIN 3.1 g/dL (3.5-5.0); ALKALINE PHOSPHATASE 87 U/L (38-126); ANION GAP 13 (5-19); ASPARTATE AMINO TRANSFERASE 28 U/L (14-36); BILIRUBIN,DIRECT 0.2 mg/dL (0.0-0.4); BILIRUBIN,TOTAL 0.2 mg/dL (0.2-1.3); BLOOD UREA NITROGEN 6 mg/dL (7-20); CALCIUM 9.1 mg/dL (8.4-10.2); CARBON DIOXIDE 21 mmol/L (22-30); CHLORIDE 107 mmol/L (98-107); GLUCOSE 127 mg/dL (75-110); PHOSPHORUS 4.2 mg/dL (2.5-4.5); POTASSIUM 4.2 mmol/L (3.6-5.0); SODIUM 141.3 mmol/L (137-145); TOTAL PROTEIN 5.7 g/dL (6.3-8.2)
[2018-07-25 12:11] LABS: ABSOLUTE LYMPHOCYTES# (MANUAL) 1.5 10^3/uL (0.5-4.7); ABSOLUTE MONOCYTES # (MANUAL) 0.3 10^3/uL (0.1-1.4); ABSOLUTE NEUTROPHILS# (MANUAL) 9.1 10^3/uL (1.7-8.2); BASOPHILS % (MANUAL) 0 % (0-2); EOSINOPHILS % (MANUAL) 5 % (0-6); LYMPHOCYTES % (MANUAL) 13 % (13-45); MONOCYTES % (MANUAL) 3 % (3-13); PLATELET CLUMPS PRESENT; PLATELET COMMENT ADEQUATE; POLYCHROMASIA SLIGHT; SEGMENTED NEUTROPHILS % (MAN) 79 % (42-78); TOTAL CELLS COUNTED 100
[2018-07-25] MEDS ORDERED: NORMAL SALINE 500 ML IV PRN (12:51)
[2018-07-25 13:50] VITALS: BP 129/82
--- NOTE | 2018-07-25 22:38 | EKG REPORT ---
SEVERITY:- ABNORMAL ECG - SINUS RHYTHM CONSIDER LEFT VENTRICULAR HYPERTROPHY : Confirmed by: Leeroy Felix 25-Jul-2018 22:37:13
== END 2018-07-25 14:02 | disposition home or self-care (01) ==
LOC: ER 10:21
DX: O90.81 Anemia of the puerperium (principal); I95.1 Orthostatic hypotension
CPT/HCPCS: 93005; 99284; 96360; 36415; 83735; 84100; 85025; 80053; 81001; 93010; J7040